=== PATIENT | female | born 1965 | race Hispanic/Latino ===

== ENCOUNTER 2022-03-16 12:05 | Day surgery (SDC) | payer OTHER ==
[2022-03-16] MEDS ORDERED: Ringers Lactate 1,000 ML IV ONE (12:26)
[2022-03-16 12:39] LABS: SARS-CoV-2 Antigen Rapid Res Negative (Negative)
[2022-03-16] MEDS ORDERED: METRONIDAZOLE 500mg IVPB 500 MG/100 ML BAG IV ONE (13:00)
[2022-03-16] MEDS ORDERED: AMPICILLIN/SULBACT 3 GM in NA CHLORIDE 0.9% 100 ML IVPB ONE (13:00)
[2022-03-16] MEDS ORDERED: MIDAZOLAM HCL 2 MG/2 ML INJ ONE (15:04)
[2022-03-16] MEDS ORDERED: propofoL 200 MG/20 ML VIAL IV ONE (15:04)
[2022-03-16] MEDS ORDERED: FENTANYL CITR 100 MCG/2 ML ONE (15:05)
[2022-03-16] MEDS ORDERED: LIDOCAINE 1% MPF 5 ML VIAL ONE (15:05)
[2022-03-16] MEDS ORDERED: VECURONIUM 10 MG/VIAL IV ONE (15:08)
[2022-03-16] MEDS ORDERED: PROMETHAZINE INJ 25 MG/ML AMP IV PRN (16:34)
[2022-03-16] MEDS ORDERED: HYDROCODONE/APAP 5/325 MG TAB PO PRN (16:34)
[2022-03-16] MEDS ORDERED: IBUPROFEN 200 MG TAB PO PRN (16:34)
[2022-03-16] MEDS ORDERED: LIDOCAINE 1% W/EPI 1:100,000 10 ML VIAL ONE (16:39)
[2022-03-16] MEDS ORDERED: KETOROLAC 30 MG/ML INJ ONE (16:41)
[2022-03-16] MEDS ORDERED: dexAMETHasone 10 MG/ML VIAL ONE (16:41)
[2022-03-16] MEDS ORDERED: ONDANSETRON 4 MG/2 ML VIAL ONE (16:43)
[2022-03-16 17:42] VITALS: O2SAT 100
[2022-03-16 18:17] VITALS: BP 113/74; TEMP 97.8
[2022-03-16 23:39] LABS: Urine Specific Gravity/Preg >1.030 (1.005-1.030)
--- NOTE | 2022-03-17 03:25 | OP ---
Date of Procedure: 03/16/2022 Surgeon: Annika Rivera MD Horseradish Grinder: No assistants. Preoperative Diagnosis: Right Bartholin's gland cyst, possible abscess. Postoperative Diagnosis: Right Bartholin's gland abscess. Procedures: Right Bartholin's gland abscess incision and drainage, marsupialization, biopsy of the w all. Anesthesia: General with LMA. Specimen: Bartholin gland cyst wall on the right. Ebl: Minimal. Complications: None. Drains: None. Condition: Stable. Indications: The patient is a 56-year-old who had a history of right Bartholin's gland cyst about 3 cm in size last year at her wellness exam. This has been asymptomatic and she has not had any proble ms and has been under observation. This morning she came in with enlarged gland that has significant ly gotten larger in the past 3 days and complaining of pain. No fever or chills. Rest of the review of the systems is negative and on examination, there was a 5 x 5 x 4 cm cyst without any superficial cellulitis, however, fluctuant and consistent with most likely an abscess. So discussed this with t he patient and incision and drainage with a Word catheter or incision and drainage with marsupializat ion and biopsy were all reviewed. She was consented and brought to the OR as this has been a recurre nt problem. Procedure In Detail: Taken back to OR. Unasyn and Flagyl have been given to the patient. After she was placed in a supine fashion on the operating table, general anesthesia was given. She w as placed in a dorsal lithotomy position using Trever stirrups. Lower abdomen, vulva, vagina, and med ial thighs were all prepped and draped in a sterile fashion. Then local with 1% lidocaine with epine phrine was injected, 8 cc on the inner aspect of the inner labia minor, which is the inner most depen dent part closer to the Bartholin's gland natural opening. A vertical incision was made on this at l east 2.5 cm long with a 15 blade. The abscess was drained. There was very evident pus from here. T he cavity was completely emptied out, opened with hemostats to break loculations if there were any. Then irrigation with 100 mL of normal sterile water was done. Once this was all suctioned out, marsu pialization was performed with a 3-0 Vicryl suture in an interrupted fashion putting the cyst wall to gether with the epithelial edges. Eight of these interrupted sutures were placed and then once there was good hemostasis here, the wall from underlying tissues was picked up and cut with Klarissa santacruz for a biopsy. Then again a second around of irrigation was done and it was packed with a 0.5-i nch Nu Gauze. The patient was straight cathed to drain her bladder. She was recovered from anesthes ia. Instrument, needle, and sponge counts were correct at the end of the case. The patient tolerate d the procedure well. She was taken to PACU in stable condition. Her sister was debriefed about her condition. Given instructions to remove her packing and daily shower. No need for any further anti biotics. She has a 1-week followup in the office. PASQUALE Voice ID: [id number] Report ID: [id number]
[2022-03-17] MEDS ORDERED: HOME MED 1 EA UNK (Mv-Min/Iron/Folic/Calcium/Vitk [Women's Multivitamin Tablet] Tablet) PO SCH (09:00)
[2022-03-17] MEDS ORDERED: VITAMIN D 1000 UNIT TAB PO SCH (09:00)
== END 2022-03-16 18:45 | disposition home or self-care (01) ==
LOC: OR 12:05
PROVIDERS: ATTEND Obstetrics & Gynecology
PROC: 0U9L00Z Drainage of Vestibular Gland with Drainage Device, Open Approach (ICD-10-PCS; principal; 2022-03-16 15:00)
DX: N75.0 Cyst of Bartholin's gland (principal); Z20.822 Contact with and (suspected) exposure to COVID-19; Z85.3 Personal history of malignant neoplasm of breast
CPT/HCPCS: 56440; 36415; 81025; 87811; J2704; J2001; J2250; J3010; J1100; J7120; J0295; J2405